=== PATIENT | female | born 1990 | race Caucasian/White ===

== ENCOUNTER 2017-08-01 07:03 | Emergency (ER) | payer MEDICAID ==
[~2017-08-01] VITALS: Ht 165.1 cm; Wt 112.0 kg
[~2017-08-01 07:03] MED LIST: CIPR2.5D18 OP; IBUP-1984 PO
[2017-08-01] MEDS ORDERED: AMOX-580 PO (08:26)
[2017-08-01] MEDS ORDERED: VALA500T PO (08:26)
[2017-08-01] MEDS ORDERED: LIDO20SO16 PO (08:26)
[2017-08-01 08:47] VITALS: BP 119/83
== END 2017-08-01 08:51 | disposition home or self-care (01) ==
LOC: ER 07:05
DX: J32.9 Chronic sinusitis, unspecified (principal); K13.79 Other lesions of oral mucosa; Z79.899 Other long term (current) drug therapy
CPT/HCPCS: 99283